=== PATIENT | male | born 1985 | race Caucasian/White ===

== ENCOUNTER 2019-12-25 14:51 | Emergency (ER) | payer MEDICAID ==
[~2019-12-25] VITALS: Ht 182.9 cm; Wt 103.4 kg
[2019-12-25 15:11] VITALS: BP 129/78; Ht 182.9 cm; Wt 103.4 kg
== END 2019-12-25 16:52 | disposition home or self-care (01) ==
LOC: ED 14:51
DX: N62 Hypertrophy of breast (principal)

== ENCOUNTER 2020-12-21 20:46 | Emergency (ER) | payer MEDICAID ==
[~2020-12-21] VITALS: Ht 185.4 cm; Wt 90.3 kg
[2020-12-21 21:02] VITALS: Ht 185.4 cm; Wt 90.3 kg
[2020-12-21 22:55] VITALS: BP 135/78
== END 2020-12-21 22:55 | disposition home or self-care (01) ==
LOC: ED 20:46
DX: K40.90 Unilateral inguinal hernia, without obstruction or gangrene, not specified as recurrent (principal); J45.909 Unspecified asthma, uncomplicated

== ENCOUNTER 2020-12-24 02:04 | Emergency (ER) | payer MEDICAID ==
[~2020-12-24] VITALS: Ht 185.4 cm; Wt 90.7 kg
[2020-12-24 02:12] VITALS: Ht 185.4 cm; Wt 90.7 kg
[2020-12-24 02:54] LABS: PLATELET COUNT 285 x10^3mcL (152-348); RED CELL DISTRIBUTION WIDTH 13.6 % (12.1-16.2)
[2020-12-24 02:57] LABS: BASOPHIL % 2.3 % (0.2-1.5)
[2020-12-24 03:05] LABS: CALCIUM 8.8 mg/dL (8.5-10.1); CARBON DIOXIDE 31.5 mmol/L (21-32); CHLORIDE SERUM 105 mmol/L (98-107); CREATININE SERUM 1.1 mg/dL (0.7-1.3); GFR1 > 60 mL/min; GLUCOSE SERUM 101 mg/dL (74-106); POTASSIUM SERUM 3.6 mmol/L (3.5-5.1); SODIUM SERUM 141 mmol/L (136-145)
[2020-12-24 03:09] LABS: ALBUMIN 3.6 g/dL (3.4-5.0); ALKALINE PHOSPHATASE 93 U/L (46-116); ALT/SGPT 51 U/L (16-63); AST/SGOT 35 U/L (15-37); BILIRUBIN TOTAL 0.29 mg/dL (0.20-1.00); TOTAL PROTEIN, SERUM 7.2 g/dL (6.4-8.2)
[2020-12-24 07:40] LABS: AMPHETAMINE QUAL UR POSITIVE (See below)
[2020-12-24 07:59] LABS: UA SPECIFIC GRAVITY 1.025 (1.005-1.035); microscopic required? YES; urine erythrocyte 1+ (NEGATIVE)
[2020-12-24 13:37] VITALS: BP 136/82
== END 2020-12-24 14:53 | disposition left against medical advice (07) ==
LOC: ED 02:04
PROVIDERS: Emergency Medicine
DX: F31.9 Bipolar disorder, unspecified (principal); F15.20 Other stimulant dependence, uncomplicated; J45.909 Unspecified asthma, uncomplicated; Z20.822 Contact with and (suspected) exposure to COVID-19
CPT/HCPCS: G0480; J7030; U0003

== ENCOUNTER 2020-12-24 14:27 | Emergency (ER) | payer MEDICAID ==
[~2020-12-24] VITALS: Ht 180.3 cm; Wt 81.6 kg
[2020-12-24 14:36] VITALS: Ht 180.3 cm; Wt 81.6 kg
[2020-12-24 18:02] VITALS: BP 136/88
== END 2020-12-24 18:03 | disposition home or self-care (01) ==
LOC: ED 14:27
DX: F03.90 Unspecified dementia, unspecified severity, without behavioral disturbance, psychotic disturbance, mood disturbance, and anxiety (principal); F15.20 Other stimulant dependence, uncomplicated; F31.9 Bipolar disorder, unspecified; J45.909 Unspecified asthma, uncomplicated
CPT/HCPCS: G0480; J2930

== ENCOUNTER 2021-01-12 06:15 | Emergency (ER) | payer MEDICAID ==
[~2021-01-12] VITALS: Ht 185.4 cm; Wt 90.8 kg
[2021-01-12 06:29] VITALS: Ht 185.4 cm; Wt 90.8 kg
[2021-01-12 08:36] LABS: BASOPHIL % 0.7 % (0.2-1.5); PLATELET COUNT 245 x10^3mcL (152-348)
[2021-01-12 08:38] LABS: RED CELL DISTRIBUTION WIDTH 14.9 % (12.1-16.2)
[2021-01-12 09:12] LABS: CALCIUM 10.1 mg/dL (8.5-10.1); CARBON DIOXIDE 31.2 mmol/L (21-32); CHLORIDE SERUM 102 mmol/L (98-107); CREATININE SERUM 0.9 mg/dL (0.7-1.3); GFR1 > 60 mL/min; GLUCOSE SERUM 108 mg/dL (74-106); POTASSIUM SERUM 4.2 mmol/L (3.5-5.1); SODIUM SERUM 142 mmol/L (136-145)
[2021-01-12 09:16] LABS: ALBUMIN 4.4 g/dL (3.4-5.0); ALKALINE PHOSPHATASE 88 U/L (46-116); ALT/SGPT 67 U/L (16-63); AST/SGOT 53 U/L (15-37); BILIRUBIN TOTAL 0.8 mg/dL (0.20-1.00); LIPASE 67 IU/L (73-393)
[2021-01-12 15:18] VITALS: BP 135/89
== END 2021-01-12 15:18 | disposition home or self-care (01) ==
LOC: ED 06:15
PROVIDERS: Student in an Organized Health Care Education/Training Program
DX: R44.2 Other hallucinations (principal); F19.10 Other psychoactive substance abuse, uncomplicated; R14.0 Abdominal distension (gaseous); J45.909 Unspecified asthma, uncomplicated; Z88.2 Allergy status to sulfonamides; Z88.8 Allergy status to other drugs, medicaments and biological substances; Z20.822 Contact with and (suspected) exposure to COVID-19
CPT/HCPCS: G0480; Q0162

== ENCOUNTER 2021-01-13 09:45 | Emergency (ER) | payer MEDICAID ==
[~2021-01-13] VITALS: Ht 185.4 cm; Wt 90.7 kg
[2021-01-13 09:47] VITALS: Ht 185.4 cm; Wt 90.7 kg
[2021-01-13 10:56] LABS: BASOPHIL % 0.7 % (0.2-1.5); PLATELET COUNT 204 x10^3mcL (152-348); RED CELL DISTRIBUTION WIDTH 14.3 % (12.1-16.2)
[2021-01-13 11:03] LABS: CALCIUM 9.1 mg/dL (8.5-10.1); CARBON DIOXIDE 26.7 mmol/L (21-32); CHLORIDE SERUM 100 mmol/L (98-107); CREATININE SERUM 0.9 mg/dL (0.7-1.3); GFR1 > 60 mL/min; GLUCOSE SERUM 79 mg/dL (74-106); POTASSIUM SERUM 3.5 mmol/L (3.5-5.1); SODIUM SERUM 136 mmol/L (136-145)
[2021-01-13 11:09] LABS: ALBUMIN 3.9 g/dL (3.4-5.0); ALKALINE PHOSPHATASE 78 U/L (46-116); ALT/SGPT 69 U/L (16-63); AST/SGOT 53 U/L (15-37); BILIRUBIN TOTAL 1.4 mg/dL (0.20-1.00); TOTAL PROTEIN, SERUM 7.1 g/dL (6.4-8.2)
[2021-01-13 17:08] LABS: AMPHETAMINE QUAL UR POSITIVE (See below)
[2021-01-14 05:49] VITALS: BP 111/58
== END 2021-01-14 05:49 | disposition home or self-care (01) ==
LOC: ED 09:45
PROVIDERS: Emergency Medicine
DX: R44.1 Visual hallucinations (principal); F15.10 Other stimulant abuse, uncomplicated; J45.909 Unspecified asthma, uncomplicated; Z88.2 Allergy status to sulfonamides; Z88.9 Allergy status to unspecified drugs, medicaments and biological substances; Z88.8 Allergy status to other drugs, medicaments and biological substances
CPT/HCPCS: G0480

== ENCOUNTER 2021-01-23 14:26 | Emergency (ER) | payer MEDICAID ==
[~2021-01-23] VITALS: Ht 185.4 cm; Wt 90.7 kg
[2021-01-23 14:35] VITALS: Ht 185.4 cm; Wt 90.7 kg
[2021-01-23 17:11] VITALS: BP 125/76
== END 2021-01-23 17:11 | disposition home or self-care (01) ==
LOC: ED 14:26
DX: F15.10 Other stimulant abuse, uncomplicated (principal); R40.4 Transient alteration of awareness; J45.909 Unspecified asthma, uncomplicated; Z02.79 Encounter for issue of other medical certificate; Z88.2 Allergy status to sulfonamides; Z88.8 Allergy status to other drugs, medicaments and biological substances